=== PATIENT | female | born 1945 | race Caucasian/White ===

== ENCOUNTER 2017-12-03 23:38 | Emergency (ER) | payer OTHER ==
[2017-12-04] MEDS ORDERED: Tetracaine 0.5% OPTH.SOL 15ML* BTL ONE (00:27)
[2017-12-04] MEDS ORDERED: Fluorescein Sodium TOPICAL* 1 MG TEST STRIP OPHTHALMIC ONE (00:27)
--- NOTE | 2017-12-04 00:27 | ED ---
Throat Pain/Nasal Congestion - HPI Summary HPI Summary: Patient is a 72-year-old female who presents emergency department for injury to her left eye that occurred just prior to arrival. Patient states that her and her are visiting the area for vet. conference and is staying in a local hotel. Patient states when they got back to the room this evening the left third dogs out of the [place] and her one dog jumped up and actually scratched left eye. Patient is unaware of her last tetanus immunization. She complains of left eye pain and blurriness. Symptoms are mild in severity. Moving and touching I makes symptoms worse. Nothing makes symptoms better. - History of Current Complaint Chief Complaint: EDEyeProblem Time Seen by Provider: 12/04/17 00:26 Hx Obtained From: Patient - Allergies/Home Medications Allergies/Adverse Reactions: Allergies Allergy/AdvReac Type Severity Reaction Status Date / Time No Known Allergies Allergy Verified 12/03/17 23:47 PMH/Surg Hx/FS Hx/Imm Hx Previously Healthy: Yes Infectious Disease History: No Infectious Disease History: Denies: Traveled Outside the [place] in Last 30 Days - Family History Known Family History: Positive: Other - noncontributory - Social History Occupation: Retired Lives: With Family Review of Systems Positive: Blurred Vision, Erythema All Other Systems Reviewed And Are Negative: Yes Physical Exam Triage Information Reviewed: Yes Vital Signs On Initial Exam: Initial Vitals Temp Pulse Resp BP Pulse Ox 97.0 F 86 16 156/66 96 12/03/17 23:43 12/03/17 23:43 12/03/17 23:43 12/03/17 23:43 12/03/17 23:43 Vital Signs Reviewed: Yes Appearance: Positive: Well-Appearing - Pt. sitting on bed holding left eye closed. Appears uncomfortable but nontoxic Skin: Positive: Warm, Dry Head/Face: Positive: Normal Head/Face Inspection Eyes: Positive: Other: - Right eye is unremarkable. Mild injection to left conjunctivae with tearing. EOM intact. Anterior chamber is clear. Neck: Positive: Supple Neurological: Positive: Normal, CN Intact II-III Psychiatric: Positive: Affect/Mood Appropriate Procedures - Procedure Summary Procedure Summary: Left eye was anesthetized with tetracaine drops and stained with fluorescein dye. Eye was examined under the [place] lamp. Large corneal abrasion noted to the left aspect of the cornea. Eyelid was everted and no foreign body identified. Eye was irrigated by nurse. Diagnostics - Vital Signs Vital Signs Temp Pulse Resp BP Pulse Ox 12/03/17 23:43 97.0 F 86 16 156/66 96 - Laboratory Lab Statement: Any lab studies that have been ordered have been reviewed, and results considered in the medical decision making process. EENT Course/Dx - Course Course Of Treatment: Patient presenting with eye pain after being scratched by her dog. She does have a large corneal abrasion on exam. Tetanus was updated. Case discussed with Dr. De Anda who advises antibiotic ointment and follow-up with ophthalmology on Wednesday. Patient states she is returning home on Wednesday and will call her eye doctor on Wednesday for close follow-up appointment. Advised cool compresses. Tylenol for pain as directed. Erythromycin ointment every 8 hours. To return to the ER if symptoms change or worsen. Patient understands and agrees with plan. - Differential Diagnoses Differential Diagnoses: Corneal Abrasion - Diagnoses Provider Diagnoses: Corneal abrasion Discharge - Sign-Out/Discharge Documenting (check all that apply): Patient Departure - Discharge Plan Condition: Good Disposition: HOME Prescriptions: Erythromycin TOPICAL GEL* [Erythromycin OPTH OINT*] 1 applic TOPICAL TID #1 oint Patient Education Materials: Corneal Abrasion (ED) Referrals: No Primary Care Phys,NOPCP [Primary Care Provider] - Additional Instructions: Call your eye doctor on Wednesday for a close follow up appointment Use erythromycin ointment as directed Apply cool compresses to eye Tylenol for pain as directed Return to ER if symptoms change or worsen - Billing Disposition and Condition Condition: GOOD Disposition: Home
[2017-12-04] MEDS ORDERED: Tetan/Diph/Pertus SYR(Tdap)* 0.5 ML SYR(BOOSTRIX) use SYR IM ONE (00:43)
[2017-12-04] MEDS ORDERED: Erythromycin TOPICAL GEL* 30 GM TUBE TOPICAL ONE (00:59)
[2017-12-04] MEDS ORDERED: Tetracaine 0.5% OPTH.SOL 4 ML* 1 DROP BTL ONE (01:00)
[2017-12-04 01:44] VITALS: BP 153/77
[2017-12-04] MEDS ORDERED: Erythromycin OPTH OINT* APPLIC OINT BOTH EYES SCH (09:00)
== END 2017-12-04 01:49 | disposition home or self-care (01) ==
LOC: ED 23:38
DX: S05.02XA Injury of conjunctiva and corneal abrasion without foreign body, left eye, initial encounter (principal); H57.12 Ocular pain, left eye; W54.1XXA Struck by dog, initial encounter; Y92.9 Unspecified place or not applicable; H53.8 Other visual disturbances
CPT/HCPCS: 90715; 99282; A9270-GY